=== PATIENT | female | born 2000 | race American Indian/Alaskan Native ===

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

== ENCOUNTER 2021-01-22 16:38 | Outpatient (CLI) | payer OTHER ==
[2021-01-22] MEDS ORDERED: LACTATED RINGERS 1,000 ML IV SCH (17:00)
[2021-01-22 17:04] VITALS: BP 112/72
[2021-01-22 17:33] LABS: Bacteria,Urine 1+ /HPF (Negative); Bilirubin,Urine NEG (Negative); Blood,Urine NEG (Negative); Color,Urine Yellow (Yellow); Mucus,Urine 3+ /HPF
== END 2021-01-22 19:03 | disposition home or self-care (01) ==
LOC: TRG 16:38 → APU 16:41 → TRG 19:03
PROVIDERS: ATTEND Obstetrics & Gynecology
DX: O21.2 Late vomiting of pregnancy (principal); Z3A.26 26 weeks gestation of pregnancy
CPT/HCPCS: 59025; 81001; 96360; 96361; J7120

== ENCOUNTER 2021-05-03 11:33 | Outpatient (CLI) | payer OTHER ==
[2021-05-03 11:56] VITALS: BP 107/69
--- NOTE | 2021-05-03 13:45 | Ultrasound Report ---
ULTRASOUND BIOPHYSICAL PROFILE ULTRASOUND OB LIMITED INDICATION: well being TECHNIQUE: Transabdominal ultrasound imaging. COMPARISON: None FINDINGS: breathing movement = 2 Gross body movement = 2 tone = 2 Qualitative amniotic fluid volume = 2 Total biophysical score = 8/8 Amniotic fluid index is 10.6 cm. Presentation is cephalic. heart rate is 145 beats per minute. IMPRESSION: biophysical profile equals 8/8. Signer Name: Lance cMcord Jr, MD Signed: 05/03/2021 1:40 PM Workstation Name: [id number]
--- NOTE | 2021-05-03 13:45 | Ultrasound Report ---
ULTRASOUND BIOPHYSICAL PROFILE ULTRASOUND OB LIMITED INDICATION: well being TECHNIQUE: Transabdominal ultrasound imaging. COMPARISON: None FINDINGS: breathing movement = 2 Gross body movement = 2 tone = 2 Qualitative amniotic fluid volume = 2 Total biophysical score = 8/8 Amniotic fluid index is 10.6 cm. Presentation is cephalic. heart rate is 145 beats per minute. IMPRESSION: biophysical profile equals 8/8. Signer Name: Lance Mccord Jr, MD Signed: 05/03/2021 1:40 PM Workstation Name: [id number]
== END 2021-05-03 13:35 | disposition home or self-care (01) ==
LOC: TRG 11:33 → APU 12:00 → TRG 13:35
DX: Z34.93 Encounter for supervision of normal pregnancy, unspecified, third trimester (principal); Z3A.40 40 weeks gestation of pregnancy
CPT/HCPCS: 59025; 76815; 76819